=== PATIENT | female | born 1950 | race Caucasian/White ===

== ENCOUNTER 2016-08-18 | Outpatient (CLI) | payer MEDICARE, OTHER | END 2016-08-18 09:01 | disposition short-term general hospital (02) | CPT/HCPCS: A0425; A0427 ==

== ENCOUNTER 2016-09-06 | Outpatient (CLI) | payer MEDICARE, OTHER | END 2016-09-06 21:03 | disposition EMS.NT | DX: R03.1 Nonspecific low blood-pressure reading (principal) ==

== ENCOUNTER 2016-09-17 09:13 | Outpatient (CLI) | payer MEDICARE, OTHER | END 2016-09-17 09:14 | disposition home or self-care (01) | DX: E11.9 Type 2 diabetes mellitus without complications (principal); I10 Essential (primary) hypertension; E78.5 Hyperlipidemia, unspecified ==

== ENCOUNTER 2017-03-24 06:12 | Outpatient (CLI) | payer MEDICARE, OTHER | END 2017-03-24 06:13 | disposition critical access hospital (66) | LOC: EMS 06:12 | PROVIDERS: ATTEND Surgery | DX: M25.511 Pain in right shoulder (principal); Z91.81 History of falling | CPT/HCPCS: A0425; A0429 ==

== ENCOUNTER 2017-03-24 06:40 | Inpatient (IN) | payer MEDICARE, OTHER ==
[2017-03-24] MEDS ORDERED: SODIUM CHLORIDE 0.9% 1,000 ML IV ONE (07:20)
[2017-03-24] MEDS ORDERED: ONDANSETRON 4 MG/2 ML VIAL IVP STA (07:20)
[2017-03-24] MEDS ORDERED: HYDROmorphone 1 MG/ML SYRINGE IVP STA (07:20)
--- NOTE | 2017-03-24 07:30 | ED Physician Documentation ---
History of Present Illness - Stated complaint Stated Complaint: FALL - Chief complaint Chief Complaint: Ext Problem - History obtained from History obtained from: Patient - Additonal information Additional information: 66-year-old female with a history of valvular heart disease status post repair in July 2016 at [facility]. She says she had a stroke postoperatively. She also has a history of depression and borderline diabetes. She takes a baby aspirin citalopram metformin and trazodone at night. Yesterday she says she felt very shaky and went to bed early without dinner. She does not have good recollection about what happened this morning but the son says he woke up and heard a scream this morning and heard a fall. He went down and found her on the ground and she is unable to get up. She is complaining of right shoulder pain but denies any significant headache neck pain chest pain abdominal pain nausea vomiting constipation, diarrhea or lower urinary symptoms. She normally has a difficult time ambulating but was getting around fine over the last couple days her son says. She often uses a walker at home. Patient lives at home in the bottom floor and her son lives upstairs. Review of systems: For pertinent positive and negatives in the review of systems please see the history of present illness, otherwise all other systems have been reviewed and are negative. Dragon disclaimer: Parts of this medical record were created using voice recognition technology. Because of the inherent limitations of this system, occasional same sounding word substitutions do occur and persist despite proofreading. Please read the document for context. Review of Systems Ten Systems: 10 systems reviewed and negative Constitutional: denies: Fever, Chills, Myalgias Eyes: denies: Photophobia Ears: denies: Loss of hearing, Ear pain, Drainage/discharge Nose: denies: Rhinorrhea / runny nose Throat: denies: Dental pain / toothache Cardiac: denies: Chest pain / pressure, Palpitations Respiratory: denies: Dyspnea, Cough GI: reports: Nausea. denies: Abdominal Pain, Abdominal Swelling, Vomiting, Constipation, Diarrhea, Hematemesis : denies: Dysuria, Frequency, Hesitancy Musculoskeletal: reports: Neck pain, Extremity pain, Joint pain. denies: Back pain Neurologic: denies: Generalized weakness, Numbness, Difficulty speaking, Near syncope, Syncope, Seizure, Confused, Altered mental status PD PAST MEDICAL HISTORY - Past Medical History Past Medical History: Yes Cardiovascular: Murmur Neuro: CVA GI: None : Incontinence, Nocturia, Frequency HEENT: Chronic hearing loss Psych: Panic attacks, Other Derm: Other - Past Surgical History General: Cholecystectomy, Appendectomy, Gastric surgery Ortho: Other Cardiovascular: Valve replacement - Present Medications Home Medications: Ambulatory Orders Medication Instructions Recorded Confirmed Trazodone HCl 50 mg PO HS PRN 10/25/13 03/24/17 Albuterol Sulfate [Proair Hfa 1 - 2 puffs INH BID PRN 03/24/17 03/24/17 Inhaler] Aspirin Chewable [[place] Ag[place]in 81 mg PO DAILY 03/24/17 03/24/17 Aspirin] Atorvastatin Calcium [Atorvastatin 40 mg PO DAILY 03/24/17 03/24/17 Calcium] Citalopram Hydrobromide 15 mg PO DAILY 03/24/17 03/24/17 [Citalopram HBr] Iron,Carbonyl [Iron Chews] 03/24/17 metFORMIN [Glucophage] 500 mg PO BID 03/24/17 03/24/17 - Allergies Allergies/Adverse Reactions: Allergies Allergy/AdvReac Type Severity Reaction Status Date / Time oxycodone Allergy Unknown Verified 03/24/17 13:48 codeine AdvReac Nausea Verified 03/24/17 06:53 - Social History Does the pt smoke?: No Smoking Status: Former smoker Does the pt drink ETOH?: No Does the pt have substance abuse?: No - Immunizations Immunizations: TDAP current <10years PD ED PE NORMAL - Vitals Vital signs reviewed: Yes - General General: Alert and oriented X 3, No acute distress, Well developed/nourished, Other (Patient is alert and oriented 3 however she does not appear to have good recollection of recent events.) - HEENT HEENT: Other (Bruising to the left zygoma area and periorbital area left side just below the left eye. Mild tenderness of the neck on palpation of the paraspinal muscles no posterior tenderness noted) - Neck Neck: Supple, no meningeal sign - Cardiac Cardiac: No murmur, No gallop, No rub, Other (The heart tones are irregular. There is no lift or heave or obvious murmur) - Respiratory Respiratory: No respiratory distress, Clear bilaterally, Other (Patient is tender over the right clavicle and anterior chest) - Abdomen Abdomen: Normal bowel sounds, Soft, Non tender, Non distended - Back Back: No CVA TTP - Derm Derm: Normal color, Warm and dry - Extremities Extremities: No deformity, No tenderness to palpate, Normal ROM s pain, Other ( Trace edema bilateral lower extremities, some bruising to the left forearm and left elbow range of motion of the left elbow well-preserved without pain) - Neuro Neuro: Alert and oriented X 3, 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, No motor deficit, No sensory deficit Results - Vitals Vitals: Vital Signs - 24 hr 03/24/17 03/24/17 03/24/17 06:42 07:15 08:29 Temperature 36.7 C 36.7 C Heart Rate 84 82 89 Respiratory 16 20 15 Rate Blood Pressure 190/94 H 196/95 H 185/93 H O2 Saturation 98 98 97 03/24/17 03/24/17 03/24/17 09:04 10:30 11:04 Temperature 36.4 C L Heart Rate 86 80 85 Respiratory 14 20 16 Rate Blood Pressure 195/91 H 180/92 H 192/91 H O2 Saturation 97 97 98 03/24/17 03/24/17 03/24/17 12:05 12:30 13:00 Temperature 36.9 C Heart Rate 79 82 Respiratory 16 20 Rate Blood Pressure 209/110 H 190/103 H 182/98 H O2 Saturation 98 94 Oxygen O2 Source Room air - Labs Labs: Laboratory Tests 03/24/17 03/24/17 03/24/17 07:35 08:15 08:15 WBC 7.3 RBC 3.60 L Hgb 11.6 L Hct 34.4 L MCV 95.5 MCH 32.3 H MCHC 33.8 RDW 14.2 Plt Count 184 MPV 8.2 Neut # 5.0 Lymph # 1.7 [place] # 0.6 Eos # 0.0 Baso # 0.0 Absolute Nucleated RBC 0.00 Nucleated RBCs 0.0 Sodium 130 L Potassium 5.2 H Chloride 99 L Carbon Dioxide 22 Anion Gap 9.0 BUN 18 Creatinine 1.1 H Estimated GFR (MDRD) 50 L Glucose 116 H Calcium 8.8 Total Bilirubin 1.3 H AST 40 ALT 29 Alkaline Phosphatase 109 Troponin I 0.11 B-Natriuretic Peptide Total Protein 5.8 L Albumin 3.1 L Globulin 2.7 Albumin/Globulin Ratio 1.1 Lipase 21 L Urine Color Urine Clarity Urine pH Ur Specific [place] Urine Protein Urine Glucose (UA) Urine Ketones Urine Occult Blood Urine Nitrite Urine Bilirubin Urine Urobilinogen Ur Leukocyte Esterase Urine RBC Urine WBC Urine WBC Clumps Ur Squamous Epith Cells Urine Bacteria Ur Microscopic Review Urine Culture Comments 03/24/17 03/24/17 08:15 10:40 WBC RBC Hgb Hct MCV MCH MCHC RDW Plt Count MPV Neut # Lymph # [place] # Eos # Baso # Absolute Nucleated RBC Nucleated RBCs Sodium Potassium Chloride Carbon Dioxide Anion Gap BUN Creatinine Estimated GFR (MDRD) Glucose Calcium Total Bilirubin AST ALT Alkaline Phosphatase Troponin I B-Natriuretic Peptide 323 H Total Protein Albumin Globulin Albumin/Globulin Ratio Lipase Urine Color YELLOW Urine Clarity CLEAR Urine pH 6.0 Ur Specific [place] <=1.005 Urine Protein NEGATIVE Urine Glucose (UA) NEGATIVE Urine Ketones NEGATIVE Urine Occult Blood NEGATIVE Urine Nitrite NEGATIVE Urine Bilirubin NEGATIVE Urine Urobilinogen 0.2 (NORMAL) Ur Leukocyte Esterase SMALL H Urine RBC 0-5 Urine WBC >25 H Urine WBC Clumps PRESENT Ur Squamous Epith Cells FEW Squamous Urine Bacteria Many H Ur Microscopic Review INDICATED Urine Culture Comments INDICATED PD MEDICAL DECISION MAKING - ED course Complexity details: reviewed old records, reviewed results, re-evaluated patient , d/w patient, d/w family, d/w polymer materials consultant ED course: Patient is a 66-year-old female with a history of diabetes, aortic valve replacement, previous stroke in 2017 and chronic gait issues who presents with a complaint of a collapse episode this morning. She felt a little shaky yesterday went to bed early, and slept all night. She woke up this morning and apparently collapsed. The patient does not have good recollection of what happened. The son heard her scream and how heard her fall. He was unable to get her up off the floor and called the ambulance. They really reported finding this patient diaphoretic. Here she was alert and oriented and appeared to be nonfocal on neurologic examination. She had a contusion to the left infraorbital area and bruising to her left elbow and also any obvious fracture to the right clavicle. A CT scan of the head, neck, and chest were unremarkable with evidence of new focal traumatic injury but did show a comminuted clavicle fracture. The patient was placed in an arm sling. She was given IV fluids and analgesia and feels better. Her EKG showed an ectopic rhythm that was mildly tachycardic. There is a few sinus beats inter-dispersed within the ectopic rhythm. This is a new finding for her. Lab work on this patient shows a potassium of 5.2 which is probably fictitiously elevated due to hemolysis. Her renal function is relatively normal. She did prove to have a urinary tract infection and subsequently was given Rocephin intravenously. We attempted to get the patient up to walk and she was very ataxic. We do not know exactly what happened this morning. It is very likely that she had a syncopal episode given the abnormal EKG cardiac syncope is a potential factor as well as possible stroke or posterior circulation ischemia. The case was discussed with the hospitalist physician on duty and the patient will be admitted to the hospital Disposition: Admission Clinical impression: 1. Probable syncope 2. Acute right sided clavicle fracture 3. Persistent ataxia and gait instability 4. Ectopic atrial rhythm on EKG which is new for this patient 5. Urinary tract infection Departure - Departure Disposition: [facility]/Danelle Discharge Date/Time: 03/24/17 13:21
[2017-03-24 07:45] LABS: BASOPHILS % (AUTO) 0.5 %; EOSINOPHILS % (AUTO) 0.5 %; HCT - HEMATOCRIT 34.4 % (37.0-47.0); HGB - HEMOGLOBIN 11.6 g/dL (12.0-16.0); LYMPHOCYTES # (AUTO) 1.7 10^3/uL (1.5-3.5); LYMPHOCYTES % (AUTO) 22.9 %; MEAN CORPUSCULAR HEMOGLOBIN 32.3 pg (27.0-31.0); MEAN CORPUSCULAR HGB CONC 33.8 g/dL (32.0-36.0); MEAN CORPUSCULAR VOLUME 95.5 fL (81.0-99.0); MEAN PLATELET VOLUME 8.2 fL (7.9-10.8); MONOCYTES # (AUTO) 0.6 10^3/uL (0.0-1.0); MONOCYTES % (AUTO) 8.1 %; RED CELL DISTRIBUTION WIDTH 14.2 % (12.0-15.0); UNCORRECTED WHITE BLOOD COUNT 7.3 x10^3/uL; WHITE BLOOD COUNT 7.3 x10^3/uL (4.8-10.8)
--- NOTE | 2017-03-24 08:16 | CT Preliminary Report ---
Exam: CT Head W/O IMPRESSION: Stable head CT. Aveb-fr-ymrbakrt atrophy and chronic white matter microvascular ischemic change. No acute intracranial process or posttraumatic abnormality. [facility] SITE ID: [id number]
--- NOTE | 2017-03-24 08:18 | CT Report ---
EXAM: CT HEAD WITHOUT CONTRAST EXAM DATE: 03/24/2017 07:48 AM. CLINICAL HISTORY: 66-year-old female with ataxia post fall with left cheek bruising. COMPARISON: 12/28/2015. TECHNIQUE: Multiaxial CT images were obtained from the foramen magnum to the vertex on an emergent ba sis. IV contrast: None. Reformats: Coronal. In accordance with CT protocol optimization, one or more of the following dose reduction techniques w ere utilized for this exam: automated exposure control, adjustment of mA and/or KV based on patient s ize, or use of iterative reconstructive technique. FINDINGS: Parenchyma: Generalized mild age-appropriate cerebral and cerebellar atrophy. No intraparenchymal hem orrhage. No evidence of mass, midline shift, or CT findings of acute infarction. Doe-white different iation is distinct. Extraaxial Spaces: Normal for age. No subdural or epidural collections identified. Ventricles: The ventricles and cortical sulci are enlarged, consistent with age-related tissue loss. Sinuses: Imaged paranasal sinuses, orbits, and mastoids show no significant abnormality. Bones: No evidence of fracture or calvarial defect. Other: Diffuse mild to moderate chronic microangiopathic white matter changes are evident. IMPRESSION: Stable head CT. [id number] atrophy and chronic white matter microvascular ischemic change. No acute intracranial process or posttraumatic abnormality. [facility] Referring Provider Line: [phone] SITE ID: [id number]
[2017-03-24] MEDS ORDERED: ONDANSETRON 4 MG/2 ML VIAL ONE (08:23)
[2017-03-24] MEDS ORDERED: HYDROmorphone 1 MG/ML SYRINGE ONE (08:24)
[2017-03-24] MEDS ORDERED: SODIUM CHLORIDE FLUSH 0.9% 10 ML SYRINGE IVP ONE (08:25)
--- NOTE | 2017-03-24 08:26 | CT Preliminary Report ---
Exam: CT Cervical Spine W/O IMPRESSION: No acute process or recent posttraumatic abnormality. Old unfused posterior spinous process fractures of T1 and T2. Severe degenerative disk disease at C5-C6 and C6-C7, somewhat worse over the past year. 3 mm degenerative retrolisthesis of C5 on C6, chronic and stable. [facility] SITE ID: [id number]
--- NOTE | 2017-03-24 08:28 | CT Report ---
EXAM: CT CERVICAL SPINE WITHOUT CONTRAST DATE: 03/24/2017 08:02 AM HISTORY: 66-year-old female with ataxia, post fall with neck pain. COMPARISONS: 12/28/2015. TECHNIQUE: Thin-section axial images were acquired of the cervical spine without contrast on an emerg ent basis. Post-processing: Coronal and sagittal reformats. Other: None. In accordance with CT protocol optimization, one or more of the following dose reduction techniques w ere utilized for this exam: automated exposure control, adjustment of mA and/or KV based on patient s ize, or use of iterative reconstructive technique. FINDINGS: Alignment: 3 mm grade 1 degenerative retrolisthesis of C5 on C6, similar to prior exam. Alignment oth erwise normal. Bones: Old unfused fractures of the posterior spinous processes of T1 and T2, in retrospect the T2 fr acture was likely present on the prior study of December 2015. No acute fractures. Interspace Levels/Facets: C1-C2: Unremarkable. C2-C3: Unremarkable. C3-C4: Unremarkable. C4-C5: Unremarkable. C5-C6: Severe degenerative disk disease with mild spondylosis, mildly progressive over the past year. C6-C7: Severe degenerative disk disease, mildly progressive over the past year with mild spondylosis. C7-T1: Unremarkable. Musculature: Normal. No fatty atrophy. Other: The paravertebral and prevertebral soft tissues are normal. The lung apices are clear. IMPRESSION: No acute process or recent posttraumatic abnormality. Old unfused posterior spinous process fractures of T1 and T2. Severe degenerative disk disease at C5-C6 and C6-C7, somewhat worse over the past year. 3 mm degenerative retrolisthesis of C5 on C6, chronic and stable. [facility] Referring Provider Line: [phone] SITE ID: [id number]
--- NOTE | 2017-03-24 08:35 | CT Report ---
EXAM: CT CHEST WITHOUT CONTRAST EXAM DATE: 03/24/2017 08:03 AM. CLINICAL HISTORY: 66-year-old female with ataxia post fall with right clavicle right chest wall tende rness. COMPARISONS: Two-view chest radiograph 10/01/2015. TECHNIQUE: Emergent axial helical CT imaging was performed through the chest. IV contrast: None. Nilson nstructions: Coronal and sagittal. In accordance with CT protocol optimization, one or more of the following dose reduction techniques w ere utilized for this exam: automated exposure control, adjustment of mA and/or KV based on patient s ize, or use of iterative reconstructive technique. FINDINGS: Lungs/Pleura: Minimal areas of atelectasis or scarring both lung bases. Moderate hyperinflation. No n odules, bronchial thickening, consolidation, or edema. Pulmonary vasculature is normal. No pericardia l or pleural effusion. No pneumothorax. Mediastinum: Interval cardiac surgery since prior study aortic valve replacement. Great vessels gross ly unremarkable. No pericardial effusion. No adenopathy. Bones: Mildly comminuted fracture at the junction of middle and distal thirds of the right clavicle, mildly displaced. No additional acute osseous abnormalities. Accentuated thoracic kyphosis, as on previous study. Visualized Abdomen: No posttraumatic abnormality. Few calcified granulomas in the spleen. Other: None. IMPRESSION: Findings consistent with mildly comminuted fracture, slightly displaced, at the junction of the middle and distal thirds of the right clavicle. Standard 2 view radiographic study of the righ t clavicle recommended for further assessment. No pneumothorax or other posttraumatic abnormality of the chest. Interval aortic valve replacement since prior chest radiograph. [facility] Referring Provider Line: [phone] SITE ID: [id number]
[2017-03-24 08:37] LABS: ALBUMIN/GLOBULIN RATIO 1.1 (1.0-2.2); BILIRUBIN,TOTAL 1.3 mg/dL (0.2-1.0); CALCIUM 8.8 mg/dL (8.5-10.3); CREATININE 1.1 mg/dL (0.4-1.0); POTASSIUM 5.2 mmol/L (3.5-5.0); TOTAL PROTEIN 5.8 g/dL (6.7-8.2)
[2017-03-24 10:53] LABS: BILIRUBIN,URINE NEGATIVE (NEGATIVE)
[2017-03-24 10:56] LABS: UA w/ MICROSCOPIC CHARGE YES
[2017-03-24 11:18] LABS: UR CULTURE IF IND INDICATED; WBC,URINE >25 /HPF (0-5)
[2017-03-24] MEDS ORDERED: cefTRIAXone 1 GM in SODIUM CHLORIDE 0.9% MINIBAG 100 ML IV STA (11:23)
[2017-03-24] MEDS ORDERED: cefTRIAXone 1 GM VIAL ONE (11:33)
[2017-03-24] MEDS ORDERED: SODIUM CHLORIDE FLUSH 0.9% 10 ML SYRINGE IVP PRN (13:04)
[2017-03-24] MEDS ORDERED: ACETAMINOPHEN 325 MG TABLET PO PRN (13:04)
[2017-03-24] MEDS ORDERED: ACETAMINOPHEN/CODEINE 300 MG/30 MG TABLET PO PRN (13:59)
[2017-03-24] MEDS ORDERED: traZODone 50 MG TABLET PO PRN (14:00)
[2017-03-24] MEDS: cloNIDine 0.1 MG TABLET PO PRN (14:24)
[2017-03-24] MEDS: SODIUM CHLORIDE FLUSH 0.9% 10 ML SYRINGE IVP SCH ×2 (14:25→21:36)
[2017-03-24] MEDS: SODIUM CHLORIDE 0.9% 1,000 ML IV SCH (14:25)
[2017-03-24 14:33] LABS: HEMOGLOBIN A1C 0.34 g/dL
[2017-03-24] MEDS ORDERED: ALBUTEROL NEB 2.5 MG/3 ML INH PRN (14:51)
[2017-03-24] MEDS: oxyCODONE 5 MG TABLET PO PRN ×2 (15:58→21:40)
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
[2017-03-24] MEDS: INSULIN ASPART 300 UNIT/3 ML PEN SUBQ SCH ×2 (16:47→21:33)
[2017-03-25] MEDS: cloNIDine 0.1 MG TABLET PO PRN ×2 (00:15→14:56)
--- NOTE | 2017-03-25 01:51 | Ultrasound Preliminary Report ---
Exam: US Carotid Doppler Complete IMPRESSION: Mild bilateral internal carotid artery calcified plaque with no hemodynamically significa nt stenosis. Validated velocity measurements with angiographic measurements and velocity criteria are extrapolated from diameter data as defined by the Society of Radiologists in Ultrasound Consensus Conference Radi ology 2003; 229;340-346. [facility] SITE ID: [id number]
[2017-03-25] MEDS: oxyCODONE 5 MG TABLET PO PRN ×4 (02:32→19:22)
[2017-03-25] MEDS: SODIUM CHLORIDE FLUSH 0.9% 10 ML SYRINGE IVP SCH ×3 (04:58→19:22)
[2017-03-25 06:05] LABS: BASOPHILS % (AUTO) 0.8 %; EOSINOPHILS # (AUTO) 0.1 10^3/uL (0.0-0.7); EOSINOPHILS % (AUTO) 1.2 %; HCT - HEMATOCRIT 30.2 % (37.0-47.0); LYMPHOCYTES # (AUTO) 1.2 10^3/uL (1.5-3.5); MEAN CORPUSCULAR HEMOGLOBIN 32.1 pg (27.0-31.0); MEAN CORPUSCULAR VOLUME 97.2 fL (81.0-99.0); MEAN PLATELET VOLUME 7.6 fL (7.9-10.8); MONOCYTES # (AUTO) 0.6 10^3/uL (0.0-1.0); MONOCYTES % (AUTO) 13.3 %; NEUTROPHILS # (AUTO) 2.6 10^3/uL (1.5-6.6); NEUTROPHILS % (AUTO) 57.7 %; RED BLOOD COUNT 3.11 10^6/uL (4.20-5.40); UNCORRECTED WHITE BLOOD COUNT 4.5 x10^3/uL; WHITE BLOOD COUNT 4.5 x10^3/uL (4.8-10.8)
[2017-03-25 06:19] LABS: ALBUMIN/GLOBULIN RATIO 1.3 (1.0-2.2); BILIRUBIN,TOTAL 0.4 mg/dL (0.2-1.0); CALCIUM 8.1 mg/dL (8.5-10.3); CREATININE 1.1 mg/dL (0.4-1.0); POTASSIUM 4.3 mmol/L (3.5-5.0); TOTAL PROTEIN 4.5 g/dL (6.7-8.2)
[2017-03-25] MEDS: INSULIN ASPART 300 UNIT/3 ML PEN SUBQ SCH ×4 (07:52→21:16)
[2017-03-25] MEDS ORDERED: SODIUM CHLORIDE 0.9% 1,000 ML IV ONE (08:42)
[2017-03-25] MEDS: SODIUM CHLORIDE 0.9% 1,000 ML IV SCH (08:48)
[2017-03-25] MEDS: NICOTINE 7 MG PATCH TOP SCH (08:48)
[2017-03-25] MEDS: ENOXAPARIN 40 MG/0.4 ML SYRINGE SUBQ SCH (08:48)
[2017-03-25] MEDS: ASPIRIN CHEW 81 MG TABLET PO SCH (08:49)
[2017-03-25] MEDS: ATORVASTATIN 40 MG TABLET PO SCH (08:49)
[2017-03-25] MEDS: CITALOPRAM 10 MG TABLET PO SCH (08:49)
[2017-03-25] MEDS: cefTRIAXone 1 GM in SODIUM CHLORIDE 0.9% MINIBAG 100 ML IV SCH (08:49)
[2017-03-25] MEDS: POLYETHYLENE GLYCOL 3350 17 GM PACKET PO SCH (08:50)
[2017-03-25] MEDS ORDERED: cefTRIAXone 1 GM VIAL IVP SCH (09:00)
[2017-03-25] MEDS ORDERED: GADOBUTROL 7.5 MMOL/7.5 ML VIAL IVP ONE (11:36)
--- NOTE | 2017-03-25 12:11 | PROVIDER PROGRESS NOTE ---
Assessment/Plan - Problem List (1) Syncope Assessment/Plan: Patient presented with syncope at home after days of dizziness, shakes and an unsteady gait She fell out of her bed and was unable to get up Cause of syncope is unclear patient did have short runs of V tach on tele but was asymptomatic echo is pending MRI ordered as patient also has ataxia concerning for possible posterior stroke Patient also has UTI which could have caused dehydration and syncope Patient fractured right clavicle due to syncopal event Plan: Tele monitoring Echo MRI Carotid doppler Treat UTI (2) Ataxia Assessment/Plan: Patient has ataxia which is new and had a syncopal event at home This is concerning for possible posterior circulation stroke CT head negative for acute stroke Could also be secondary to hypertensive emergency as patients BP was very high on presentation Plan: MRI PT evaluation Carotid doppler Echo Control BP Monitoring (3) UTI (urinary tract infection) Qualifiers: Urinary tract infection type: acute cystitis Assessment/Plan: UA was positive with pyuria and bacteruria in setting of syncope, generalized weakness and ataxia Patient also had chills at home but no fever or leukocytosis Started on ceftriaxone day 2 Urine cx growing gram negative bacteria but sensitivities to follow (4) Hypertension Assessment/Plan: Uncontrolled BP on presentation concerning for acute stroke Allowing for permissive hypertension till MRI is back Started on home meds Keep BP less than 180 systolic Monitor closely (5) Diabetes Assessment/Plan: On metformin at home Started on SS insulin while hospitalized MOnitor BG (6) Right clavicle fracture Qualifiers: Encounter type: initial encounter Clavicle location: lateral end Fracture type: closed Fracture alignment: displaced Qualified Code(s): S42.031A - Displaced fracture of lateral end of right clavicle, initial encounter for closed fracture Assessment/Plan: Placed in sling will change to figure 8 sling per PT recommendations Patient will continue conservative management Will need to follow up with ortho as outpatient Will continue pain control - Current Meds Current Meds: Current Medications Generic Name Dose Route Start Last Admin Trade Name Freq PRN Reason Stop Dose Admin Aspirin 81 mg 03/25/17 09:00 03/25/17 08:49 [facility] Agustin Aspirin PO 81 mg DAILY TIARA Administration Atorvastatin Calcium 40 mg 03/25/17 09:00 03/25/17 08:49 Lipitor PO 40 mg DAILY TIARA Administration Citalopram Hydrobromide 15 mg 03/25/17 09:00 03/25/17 08:49 Celexa PO 15 mg DAILY TIARA Administration Clonidine HCl 0.1 mg 03/24/17 13:34 03/25/17 00:15 Catapres PO 0.1 mg Q6HR PRN Administration Hypertensive Emergency Enoxaparin Sodium 40 mg 03/25/17 09:00 03/25/17 08:48 Lovenox SUBQ 40 mg DAILY TIARA Administration Sodium Chloride 1,000 mls @ 50 mls/hr 03/24/17 14:00 03/25/17 08:48 Normal Saline 0.9% IV 50 mls/hr .Q20H TIARA Administration Ceftriaxone Sodium 1 gm/ 100 mls @ 200 mls/hr 03/25/17 09:00 03/25/17 08:49 Sodium Chloride IV 200 mls/hr DAILY TIARA Administration Insulin Aspart 1 - 9 unit 03/24/17 17:00 03/25/17 07:52 Novolog SUBQ Not Given 0800,1200,1700,2100 TIARA Protocol Nicotine 1 patch 03/25/17 09:00 03/25/17 08:48 Nicoderm TOP 1 patch DAILY TIARA Administration Oxycodone HCl 5 mg 03/24/17 14:50 03/25/17 06:45 Roxicodone PO 5 mg Q4HR PRN Administration PAIN Polyethylene Glycol 17 gm 03/25/17 09:00 03/25/17 08:50 Miralax PO Not Given DAILY TIARA Sodium Chloride 10 ml 03/24/17 14:00 03/25/17 04:58 Normal Saline Flush 0.9% IVP Not Given Q8HR TIARA - Lab Result Lab results reviewed: Yes Fish Bone Diagrams: 03/25/17 06:00 03/25/17 06:00 - EKG Results EKG Interpreted Independently: Yes - Diagnostic Imaging Results Diagnostic Imaging Results: Final report reviewed - Additional Planning Condition/Complexity: Guarded My Orders: My Active Orders 03/25/17 11:43 ED Splints & Immobilizers ONCE Plan Discussed with:: Patient Time Spent: 31-60 minutes Subjective - Subjective Patient Reports: Dizzines (Improving), Pain (Right clavicle- hurts whenever she moves it), Other (She states she has not been up today so she cannot tell if she is still having trouble with her gait) Nursing Reports: No Complaints Objective Vital Signs: Vital Signs - 24 hr 03/24/17 03/24/1717 13:30 13:47 15:54 Temperature 36.4 C L 36.8 C Heart Rate [ 90 69 Brachial] Heart Rate [ 90 Supine] Respiratory 16 16 Rate Blood Pressure 205/115 H 178/88 H [Left Brachial artery] Blood Pressure 205/115 H [Supine] O2 Saturation 100 97 O2 Saturation [ 100 Without Activity] 03/24/17 03/24/17 03/25/17 17:03 19:38 00:12 Temperature 37.3 C 36.7 C Heart Rate [ 71 76 Brachial] Heart Rate [ Supine] Respiratory 14 16 Rate Blood Pressure 153/83 H 155/74 H 165/82 H [Left Brachial artery] Blood Pressure [Supine] O2 Saturation 100 96 O2 Saturation [ Without Activity] 03/25/17 03/25/17 04:18 07:22 Temperature 36.8 C 36.9 C Heart Rate [ 74 68 Brachial] Heart Rate [ Supine] Respiratory 16 16 Rate Blood Pressure 150/75 H 133/79 H [Left Brachial artery] Blood Pressure [Supine] O2 Saturation 96 95 O2 Saturation [ Without Activity] Oxygen O2 Source [Without Activity] Room air O2 Source Room air I&O (Last 24 Hrs): Intake and Output Totals x24h 03/23/17 03/24/17 03/25/17 23:59 23:59 23:59 Intake Total 579 693 Balance 579 693 General: Alert, Oriented x3, Cooperative, Mild distress (pain in right clavicle) HEENT: Atraumatic, PERRLA, EOMI, Other (dry mucus membranes) Neck: Supple, No JVD, No thyromegaly, +2 carotid pulse wo bruit, No LAD Lymphatic: no adenopathy Neuro: Alert, Non Focal, CN 2-12 Grossly Intact, Oriented Times 3, Other (Ataxia ) Cardiovascular: Regular rate, Normal S1, Normal S2, No murmurs Respiratory: Chest non-tender, No respiratory distress, Breath sounds nml Abdomen: Normal bowel sounds, Soft, No tenderness, No hepatospenomegaly Extremities: No clubbing, No cyanosis, No edema, Normal pulses, Other (Right arm in sling) Skin: No rashes, No breakdown - Results Results: Laboratory Results WBC 4.5 x10^3/uL (4.8-10.8) L 03/25/17 06:00 RBC 3.11 10^6/uL (4.20-5.40) L 03/25/17 06:00 Hgb 10.0 g/dL (12.0-16.0) L 03/25/17 06:00 Hct 30.2 % (37.0-47.0) L 03/25/17 06:00 MCV 97.2 fL (81.0-99.0) 03/25/17 06:00 MCH 32.1 pg (27.0-31.0) H 03/25/17 06:00 MCHC 33.0 g/dL (32.0-36.0) 03/25/17 06:00 RDW 14.0 % (12.0-15.0) 03/25/17 06:00 Plt Count 132 10^3/uL (130-450) 03/25/17 06:00 MPV 7.6 fL (7.9-10.8) L 03/25/17 06:00 Neut # 2.6 10^3/uL (1.5-6.6) 03/25/17 06:00 Lymph # 1.2 10^3/uL (1.5-3.5) L 03/25/17 06:00 Moody # 0.6 10^3/uL (0.0-1.0) 03/25/17 06:00 Eos # 0.1 10^3/uL (0.0-0.7) 03/25/17 06:00 Baso # 0.0 10^3/uL (0.0-0.1) 03/25/17 06:00 Absolute Nucleated RBC 0.00 x10^3/uL 03/25/17 06:00 Nucleated RBCs 0.0 /100WBC 03/25/17 06:00 Sodium 134 mmol/L (135-145) L 03/25/17 06:00 Potassium 4.3 mmol/L (3.5-5.0) 03/25/17 06:00 Chloride 106 mmol/L (101-111) 03/25/17 06:00 Carbon Dioxide 24 mmol/L (21-32) 03/25/17 06:00 Anion Gap 4.0 (6-13) L 03/25/17 06:00 BUN 12 mg/dL (6-20) 03/25/17 06:00 Creatinine 1.1 mg/dL (0.4-1.0) H 03/25/17 06:00 Estimated GFR (MDRD) 50 (>89) L 03/25/17 06:00 Glucose 108 mg/dL (70-100) H 03/25/17 06:00 POC Whole Bld Glucose 110 mg/dL (70 - 100) H 03/25/17 07:17 Glycated Hemoglobin 4.7 % (4.6-6.2) 03/24/17 07:35 Estim Average Glucose 88 (70-100) 03/24/17 07:35 Calcium 8.1 mg/dL (8.5-10.3) L 03/25/17 06:00 Total Bilirubin 0.4 mg/dL (0.2-1.0) 03/25/17 06:00 AST 28 IU/L (10-42) 03/25/17 06:00 ALT 21 IU/L (10-60) 03/25/17 06:00 Alkaline Phosphatase 86 IU/L (42-121) 03/25/17 06:00 Troponin I 0.11 ng/mL (<0.49) 03/24/17 08:15 B-Natriuretic Peptide 323 pg/mL (5-100) H 03/24/17 08:15 Total Protein 4.5 g/dL (6.7-8.2) L 03/25/17 06:00 Albumin 2.5 g/dL (3.2-5.5) L 03/25/17 06:00 Globulin 2.0 g/dL (2.1-4.2) L 03/25/17 06:00 Albumin/Globulin Ratio 1.3 (1.0-2.2) 03/25/17 06:00 Lipase 21 U/L (22-51) L 03/24/17 08:15 Urine Color YELLOW 03/24/17 10:40 Urine Clarity CLEAR (CLEAR) 03/24/17 10:40 Urine pH 6.0 PH (5.0-7.5) 03/24/17 10:40 Ur Specific [place] <=1.005 (1.002-1.030) 03/24/17 10:40 Urine Protein NEGATIVE mg/dL (NEGATIVE) 03/24/17 10:40 Urine Glucose (UA) NEGATIVE mg/dL (NEGATIVE) 03/24/17 10:40 Urine Ketones NEGATIVE mg/dL (NEGATIVE) 03/24/17 10:40 Urine Occult Blood NEGATIVE (NEGATIVE) 03/24/17 10:40 Urine Nitrite NEGATIVE (NEGATIVE) 03/24/17 10:40 Urine Bilirubin NEGATIVE (NEGATIVE) 03/24/17 10:40 Urine Urobilinogen 0.2 (NORMAL) E.U./dL (NORMAL) 03/24/17 10:40 Ur Leukocyte Esterase SMALL (NEGATIVE) H 03/24/17 10:40 Urine RBC 0-5 /HPF (0-5) 03/24/17 10:40 Urine WBC >25 /HPF (0-5) H 03/24/17 10:40 Urine WBC Clumps PRESENT 03/24/17 10:40 Ur Squamous Epith Cells FEW Squamous (<= Few) 03/24/17 10:40 Urine Bacteria Many /HPF (None Seen) H 03/24/17 10:40 Ur Microscopic Review INDICATED 03/24/17 10:40 Urine Culture Comments INDICATED 03/24/17 10:40
--- NOTE | 2017-03-25 13:36 | MRI Preliminary Report ---
Exam: MRI Brain W/WO IMPRESSION: 1. No acute intracranial abnormalities. Specifically, no evidence of acute infarct, hemorrhage, or ma ss lesion. 2. Encephalomalacia in the occipital poles bilaterally, left side greater than right, most consistent with remote infarcts in the LIME SLUDGE MIXER territories. Involvement of the LIME SLUDGE MIXER territories bilaterally raises t he possibility of vertebrobasilar insufficiency. Consider CTA of the head and neck for vascular evalu ation. 3. Moderate to severe white matter changes in the deep cerebral white matter and extending to the sub cortical white matter bilaterally. Appearance is nonspecific, but most commonly due to sequelae of ch ronic small vessel ischemic disease. [facility] SITE ID: [id number]
--- NOTE | 2017-03-25 13:39 | MRI Report ---
EXAM: MRI BRAIN WITHOUT AND WITH CONTRAST EXAM DATE: 03/25/2017 11:54 AM. CLINICAL HISTORY: 66-year-old woman with intermittent dizziness. COMPARISON: Noncontrast head CT on 03/24/2017. TECHNIQUE: Multiplanar, multisequence T1-weighted and fluid-sensitive MR sequences of the brain were performed. Sequences optimized for routine evaluation. Other: None. Without and with IV Contrast: 4.5 cc Gadavist. FINDINGS: Parenchyma: No evidence of acute infarct on diffusion weighted sequence. The parenchyma demonstrates encephalomalacia in the occipital poles bilaterally, left side greater than right, as seen on the talya or CT and consistent with infarcts in the HOURLY SIGN LANGUAGE INTERPRETER territories. The remainder of the parenchyma demonstrat es moderate to severe burden of nonspecific FLAIR hyperintensity in the deep cerebral and periventric ular white matter. This extends to the subcortical white matter bilaterally, greatest in the posterio r frontal lobes. No abnormal enhancement. Pituitary: Unremarkable. Ventricles and Extra-axial Spaces: Ventricles are symmetric but mildly enlarged, most consistent with central cerebral volume loss at the upper limits of normal for age. Extra-axial spaces are unremarka ble. No abnormal enhancement. Internal Auditory Canals: Patent without mass lesion or abnormal enhancement bilaterally. Cochleas an d vestibular apparatuses demonstrate normal fluid signal intensity without abnormal enhancement. Orbits: Unremarkable. Sinuses: Paranasal sinuses and mastoid air cells are clear. Major Vascular Flow Voids: Intact. Dural Venous Sinuses and Major Central Veins: Patent on post-contrast images. IMPRESSION: 1. No acute intracranial abnormalities. Specifically, no evidence of acute infarct, hemorrhage, or ma ss lesion. 2. Encephalomalacia in the occipital poles bilaterally, left side greater than right, most consistent with remote infarcts in the HOURLY SIGN LANGUAGE INTERPRETER territories. Involvement of the HOURLY SIGN LANGUAGE INTERPRETER territories bilaterally raises t he possibility of vertebrobasilar insufficiency. Consider CTA of the head and neck for vascular evalu ation. 3. Moderate to severe white matter changes in the deep cerebral white matter and extending to the sub cortical white matter bilaterally. Appearance is nonspecific, but most commonly due to sequelae of ch ronic small vessel ischemic disease. [facility] Referring Provider Line: [phone] SITE ID: [id number]
--- NOTE | 2017-03-25 17:07 | Ultrasound Report ---
EXAM: CAROTID DOPPLER ULTRASOUND EXAM DATE: 03/25/2017 01:37 AM. CLINICAL HISTORY: Vertigo and syncope. COMPARISON: None. TECHNIQUE: Real-time sonographic vascular imaging was performed by the manager managed backup services through the [employer] arterial system with a linear transducer utilizing color-flow, Doppler flow and spectral analysis. Multiple branch service representative static images were saved for review. FINDINGS: Doe scale evaluation of the carotid arteries demonstrates mild calcified proximal to mid i nternal carotid artery plaque bilaterally noting vessel tortuosity. Peak systolic velocities and ICA/ CCA ratios, however, remain within normal limits. VELOCITIES: Right: CCA Prox: PSV 63.8 cm/sec. CCA Dist: PSV 56.3 cm/sec, EDV 17.9 cm/sec. ICA Prox: PSV 37.9 cm/sec, EDV 9.3 cm/sec. ICA Mid: PSV 35.9 cm/sec, EDV 11.8 cm/sec. ICA Dist: PSV 38.1 cm/sec, EDV 12.9 cm/sec. ECA: PSV 56.0 cm/sec. Vertebral Artery: PSV 59.8 cm/sec. RVA flow direction: Antegrade. Left: CCA Prox: PSV 110.9 cm/sec. CCA Dist: PSV 49.9 cm/sec, EDV 14.0 cm/sec. ICA Prox: PSV 80.3 cm/sec, EDV 25.2 cm/sec. ICA Mid: PSV 82.6 cm/sec, EDV 30.8 cm/sec. ICA Dist: PSV 52.3 cm/sec, EDV 18.9 cm/sec. ECA: PSV 51.9 cm/sec. Vertebral Artery: PSV 43.4 cm/sec. LVA flow direction: Antegrade. Other: None. IMPRESSION: Mild bilateral internal carotid artery calcified plaque with no hemodynamically significa nt stenosis. Validated velocity measurements with angiographic measurements and velocity criteria are extrapolated from diameter data as defined by the Society of Radiologists in Ultrasound Consensus Conference Radi ology 2003; 229;340-346. [facility] Referring Provider Line: [phone] SITE ID: [id number]
[2017-03-26] MEDS: oxyCODONE 5 MG TABLET PO PRN ×3 (00:45→09:50)
[2017-03-26] MEDS: cloNIDine 0.1 MG TABLET PO PRN (04:44)
[2017-03-26] MEDS: SODIUM CHLORIDE FLUSH 0.9% 10 ML SYRINGE IVP SCH (05:10)
[2017-03-26] MEDS: SODIUM CHLORIDE 0.9% 1,000 ML IV SCH (05:52)
[2017-03-26 06:01] LABS: BASOPHILS % (AUTO) 0.9 %; EOSINOPHILS # (AUTO) 0.1 10^3/uL (0.0-0.7); EOSINOPHILS % (AUTO) 1.6 %; HCT - HEMATOCRIT 29.7 % (37.0-47.0); HGB - HEMOGLOBIN 9.7 g/dL (12.0-16.0); LYMPHOCYTES # (AUTO) 1.4 10^3/uL (1.5-3.5); LYMPHOCYTES % (AUTO) 36.7 %; MEAN CORPUSCULAR HEMOGLOBIN 32.2 pg (27.0-31.0); MEAN CORPUSCULAR HGB CONC 32.7 g/dL (32.0-36.0); MEAN CORPUSCULAR VOLUME 98.4 fL (81.0-99.0); MEAN PLATELET VOLUME 8.1 fL (7.9-10.8); MONOCYTES # (AUTO) 0.5 10^3/uL (0.0-1.0); MONOCYTES % (AUTO) 12.5 %; NEUTROPHILS # (AUTO) 1.8 10^3/uL (1.5-6.6); NEUTROPHILS % (AUTO) 48.3 %; NUCLEATED RED BLOOD CELLS AUTO 0.1 /100WBC; RED BLOOD COUNT 3.02 10^6/uL (4.20-5.40); RED CELL DISTRIBUTION WIDTH 14.2 % (12.0-15.0); UNCORRECTED WHITE BLOOD COUNT 3.8 x10^3/uL; WHITE BLOOD COUNT 3.8 x10^3/uL (4.8-10.8)
[2017-03-26 06:02] LABS: BILIRUBIN,TOTAL 0.5 mg/dL (0.2-1.0); CREATININE 1.1 mg/dL (0.4-1.0); POTASSIUM 4.1 mmol/L (3.5-5.0); TOTAL PROTEIN 4.5 g/dL (6.7-8.2)
[2017-03-26] MEDS: CITALOPRAM 10 MG TABLET PO SCH (08:26)
[2017-03-26] MEDS: ATORVASTATIN 40 MG TABLET PO SCH (08:26)
[2017-03-26] MEDS: NICOTINE 7 MG PATCH TOP SCH (08:26)
[2017-03-26] MEDS: ASPIRIN CHEW 81 MG TABLET PO SCH (08:26)
[2017-03-26] MEDS: ENOXAPARIN 40 MG/0.4 ML SYRINGE SUBQ SCH (08:26)
[2017-03-26] MEDS: POLYETHYLENE GLYCOL 3350 17 GM PACKET PO SCH (08:26)
[2017-03-26] MEDS: INSULIN ASPART 300 UNIT/3 ML PEN SUBQ SCH ×2 (08:27→11:53)
[2017-03-26 09:06] VITALS: BP 109/64
[2017-03-26] MEDS: cefTRIAXone 1 GM in SODIUM CHLORIDE 0.9% MINIBAG 100 ML IV SCH (09:21)
--- NOTE | 2017-03-26 10:24 | Discharge Plan ---
Discharge Plan Disposition: Home Health Service Condition: Fair Prescriptions: Sulfamethox/Trimeth 800/160 [Bactrim Ds 800/160] 1 each PO BID #10 tablet Diet: Diabetic Activity Restrictions: Keep arm in splint Shower Restrictions: No Driving Restrictions: No Assistance Devices: Walker Weight Bearing: Full Weight Additional Instructions or Follow Up instructions: You presented with a syncopal episode and broke your right clavicle. We believe the reason for your syncopal episode was that you were dehydrated from a urinary tract infection. You underwent extensive testing which did not show any evidence of a stoke or any problems with your heart. You will be prescribed an antibiotic called bactrim which you will take for 5 days to complete treatment for your infection. You have been given a figure 8 sling which you should keep your arm in until you follow up with orthopedic surgery. Please call the Orthopedic office in [place] to set up an appointment in the next week. You will need a walker at home and we will be send home health PT to your home to help improve your strengthening. No Smoking: If you smoke, Please STOP! Call for help. Follow-up with: NJ CHAPA MD [Primary Care Provider] - Hossein Malagon MD [Provider Admit Priv/Credential] -
--- NOTE | 2017-03-26 10:36 | DISCHARGE SUMMARY ---
Discharge Summary Admit Date: 03/24/17 Discharge Date: 03/26/17 Discharging Provider: Levi Drummond MD Primary Care Provider: Khushboo Hwang MD Code Status: Attempt Resuscitation Condition at Discharge: Fair Discharge Disposition: Home Health Service - DIAGNOSES Admission Diagnoses: 1. Syncope and collapse 2. Hypertensive urgency 3. Diabetes, uncontrolled 4. Suspect cerebrovascular accident 5. Urinary tract infection 6. Right Clavicle fracture 7. Chronic obstructive pulmonary disease, without exacerbation. Discharge Diagnoses with Status of Each Condition: 1. Urinary tract infection - improving 2. Right clavicle fracture - stable 3. Syncope likely vasovagal - stable 4. Hypertension - stable 5. Diabetes - stable 6. 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 Abnormally functioning bioprosthetic aortic valve. - HPI History of Present Illness: The patient is a 66-year-old female with a past medical history significant for CVA, Aortic valve replacement, anxiety, diabetes and chronic hearing loss who presented to the emergency department with a chief complaint of fall. She stated that she had been having trouble with dizziness for a couple of months maybe longer. She stated that she was unsteady when she walks and some days it gets really bad. She stated that to the day prior to admission she had a lot of dizziness and describes having the shakes. She states that she went to bed early around 5:00 while her was watching football. The patient's stated that he heard a loud thud and proceeded to find his on the floor. She did not really know what it happened and was not sure if she had lost consciousness but could not remember falling to the floor. The patient was put back in bed and did not seem to be having any problem. She then woke up the next morning and could not get out of bed. The patient was brought to the emergency department and found to have a fractured right clavicle and a urinary tract infection. The patient was admitted for treatment of her UTI and further evaluation of syncope and ataxia. - HOSPITAL COURSE Hospital Course: The patient was admitted to the hospitalist service and treated for urinary tract infection with ceftriaxone IV. She underwent workup for syncope with telemetry monitoring, echocardiogram, MRI, carotid Doppler and CT head and cervical spine. The patient's workup was negative for acute CVA, carotid stenosis and valvular disease. The patient's MRI did reveal encephalomalacia in the occipital poles bilaterally, left greater than right, most consistent with remote infarct in the ART SUPERVISOR territory. The patient was found to have an abnormally functioning porcine bioprosthetic aortic valve with a peak/mean pressure gradient of 47/23 mmHg and an aortic valve area by continuity equation of 0.66 cm. I spoke with Dr. Sims of [facility] who had access to the patient's most recent echocardiogram from July and said that her mean peak pressure was 22 at that time not very different from this most recent echo. She said that the patient did not have an established talent partner and had been seeing her cardiothoracic surgeon in follow-up. She asked that the patient follow-up with [facility] but did not believe that this was the cause of her syncopal episode. This was the likely explanation for the patient's ataxia which had been ongoing for months. If symptoms worsen the patient may need a CTA of the head and neck for further vascular evaluation as an outpatient. It was presumed that the patient likely had syncope secondary to dehydration due to her urinary tract infection. The patient did continue to have a unsteady gait and was evaluated by physical therapy. Physical therapy initially recommended that the patient go to rehab however the patient wanted to return home with her . The patient was eventually discharged home with home health PT. The patient completed 3 days of ceftriaxone in the hospital and was discharged home on Bactrim as her urine culture grew E. coli that was susceptible to Bactrim. For the patient's right clavicle fracture she was placed in a figure 8 sling and given education by physical therapy. We did speak with orthopedic surgery and they asked that the patient follow-up in orthopedic clinic as an outpatient there was no need for any surgical intervention. The patient's pain was adequately controlled and she was instructed to take Tylenol and NSAIDs at home if needed for pain. The patient was discharged in stable condition and will follow up with her primary care physician and orthopedic surgery as an outpatient. - ALLERGIES Allergies/Adverse Reactions: Allergies Allergy/AdvReac Type Severity Reaction Status Date / Time codeine AdvReac Nausea Verified 03/24/17 06:53 - MEDICATIONS Home Medications: Ambulatory Orders Medication Instructions Recorded Confirmed Trazodone HCl 50 mg PO HS PRN 10/25/13 03/24/17 Albuterol Sulfate [Proair Hfa 1 - 2 puffs INH BID PRN 03/24/17 03/24/17 Inhaler] Aspirin Chewable [[place] 81 mg PO DAILY 03/24/17 03/24/17 Aspirin] Atorvastatin Calcium 40 mg PO DAILY 03/24/17 03/24/17 Citalopram Hydrobromide 15 mg PO DAILY 03/24/17 03/24/17 [Citalopram HBr] Iron,Carbonyl [Iron Chews] 03/24/17 metFORMIN [Glucophage] 500 mg PO BID 03/24/17 03/24/17 Sulfamethox/Trimeth 800/160 1 each PO BID #10 tablet 03/26/17 [Bactrim Ds 800/160] - PHYSICAL EXAM AT DISCHARGE General Appearance: positive: No acute distress, Alert Eyes Bilateral: positive: Normal inspection, PERRL, EOMI, No lid inflammation, Conjunctivae nml, No scleral icterus ENT: positive: ENT inspection nml, Pharynx nml, No signs of dehydration. negative: Purulent nasal drainage, Pharyngeal erythema, Oral lesions Neck: positive: Nml inspection, Thyroid nml, No JVD, Trachea midline. negative : Thyromegaly, Lymphadenopathy (R), Lymphadenopathy (L) Respiratory: positive: Chest non-tender, No respiratory distress, Breath sounds nml. negative: Wheezes, Rales, Rhonchi Cardiovascular: positive: Regular rate & rhythm, No murmur, No gallop Peripheral Pulses: positive: 2+ Abdomen: positive: Non-tender, No organomegaly, Nml bowel sounds, No distention Back: positive: Nml inspection. negative: CVA tenderness (R), CVA tenderness (L ) Skin: positive: Color nml, No rash, Warm Extremities: positive: No pedal edema, Other (Right arm in sling with decreased range of motion due to pain) Neurologic/Psychiatric: positive: Oriented x3, CN's nml (2-12), Motor nml, Sensation nml, Mood/affect nml, Other (Ataxia) - LABS Result Diagrams: 03/26/17 05:41 03/26/17 05:41 Other Lab Results: Laboratory Results WBC 3.8 x10^3/uL (4.8-10.8) L 03/26/17 05:41 RBC 3.02 10^6/uL (4.20-5.40) L 03/26/17 05:41 Hgb 9.7 g/dL (12.0-16.0) L 03/26/17 05:41 Hct 29.7 % (37.0-47.0) L 03/26/17 05:41 MCV 98.4 fL (81.0-99.0) 03/26/17 05:41 MCH 32.2 pg (27.0-31.0) H 03/26/17 05:41 MCHC 32.7 g/dL (32.0-36.0) 03/26/17 05:41 RDW 14.2 % (12.0-15.0) 03/26/17 05:41 Plt Count 111 10^3/uL (130-450) L 03/26/17 05:41 MPV 8.1 fL (7.9-10.8) 03/26/17 05:41 Neut # 1.8 10^3/uL (1.5-6.6) 03/26/17 05:41 Lymph # 1.4 10^3/uL (1.5-3.5) L 03/26/17 05:41 [place] # 0.5 10^3/uL (0.0-1.0) 03/26/17 05:41 Eos # 0.1 10^3/uL (0.0-0.7) 03/26/17 05:41 Baso # 0.0 10^3/uL (0.0-0.1) 03/26/17 05:41 Absolute Nucleated RBC 0.00 x10^3/uL 03/26/17 05:41 Nucleated RBCs 0.1 /100WBC 03/26/17 05:41 Sodium 140 mmol/L (135-145) 03/26/17 05:41 Potassium 4.1 mmol/L (3.5-5.0) 03/26/17 05:41 Chloride 112 mmol/L (101-111) H 03/26/17 05:41 Carbon Dioxide 27 mmol/L (21-32) 03/26/17 05:41 Anion Gap 1.0 (6-13) L 03/26/17 05:41 BUN 9 mg/dL (6-20) 03/26/17 05:41 Creatinine 1.1 mg/dL (0.4-1.0) H 03/26/17 05:41 Estimated GFR (MDRD) 50 (>89) L 03/26/17 05:41 Glucose 107 mg/dL (70-100) H 03/26/17 05:41 POC Whole Bld Glucose 96 mg/dL (70 - 100) 03/26/17 07:48 Glycated Hemoglobin 4.7 % (4.6-6.2) 03/24/17 07:35 Estim Average Glucose 88 (70-100) 03/24/17 07:35 Calcium 8.0 mg/dL (8.5-10.3) L 03/26/17 05:41 Total Bilirubin 0.5 mg/dL (0.2-1.0) 03/26/17 05:41 AST 27 IU/L (10-42) 03/26/17 05:41 ALT 20 IU/L (10-60) 03/26/17 05:41 Alkaline Phosphatase 78 IU/L (42-121) 03/26/17 05:41 Troponin I 0.11 ng/mL (<0.49) 03/24/17 08:15 B-Natriuretic Peptide 323 pg/mL (5-100) H 03/24/17 08:15 Total Protein 4.5 g/dL (6.7-8.2) L 03/26/17 05:41 Albumin 2.3 g/dL (3.2-5.5) L 03/26/17 05:41 Globulin 2.2 g/dL (2.1-4.2) 03/26/17 05:41 Albumin/Globulin Ratio 1.0 (1.0-2.2) 03/26/17 05:41 Lipase 21 U/L (22-51) L 03/24/17 08:15 Urine Color YELLOW 03/24/17 10:40 Urine Clarity CLEAR (CLEAR) 03/24/17 10:40 Urine pH 6.0 PH (5.0-7.5) 03/24/17 10:40 Ur Specific [place] <=1.005 (1.002-1.030) 03/24/17 10:40 Urine Protein NEGATIVE mg/dL (NEGATIVE) 03/24/17 10:40 Urine Glucose (UA) NEGATIVE mg/dL (NEGATIVE) 03/24/17 10:40 Urine Ketones NEGATIVE mg/dL (NEGATIVE) 03/24/17 10:40 Urine Occult Blood NEGATIVE (NEGATIVE) 03/24/17 10:40 Urine Nitrite NEGATIVE (NEGATIVE) 03/24/17 10:40 Urine Bilirubin NEGATIVE (NEGATIVE) 03/24/17 10:40 Urine Urobilinogen 0.2 (NORMAL) E.U./dL (NORMAL) 03/24/17 10:40 Ur Leukocyte Esterase SMALL (NEGATIVE) H 03/24/17 10:40 Urine RBC 0-5 /HPF (0-5) 03/24/17 10:40 Urine WBC >25 /HPF (0-5) H 03/24/17 10:40 Urine WBC Clumps PRESENT 03/24/17 10:40 Ur Squamous Epith Cells FEW Squamous (<= Few) 03/24/17 10:40 Urine Bacteria Many /HPF (None Seen) H 03/24/17 10:40 Ur Microscopic Review INDICATED 03/24/17 10:40 Urine Culture Comments INDICATED 03/24/17 10:40 - DIAGNOSTIC IMAGING Diagnostic Imaging Results: Final report reviewed Diagnostic Imaging Results Comments: CT cervical spine: No acute process or recent posttraumatic abnormality. Old unfused posterior spinous process fracture of T1 and T2. Severe degenerative disc disease at C5-C6 and C7-C6, somewhat worse over the past year. 3 mm degenerative retrolisthesis of C5 on C6, chronic and stable. CT chest: Findings consistent with mildly comminuted fracture, slightly displaced, at the junction of the middle and distal third of the right clavicle. Standard two-view radiography study of the right clavicle recommended for further assessment. No pneumothorax or other posttraumatic abnormality of the chest. Interval aortic valve replacement since prior chest radiography. CT head impression: Stable CT head. Mild to moderate atrophy and chronic white matter microvascular ischemic change. No acute intracranial process or posttraumatic abnormality. Carotid Doppler: Mild bilateral internal carotid artery calcified plaque with no hemodynamically significant stenosis. MRI brain: 1. No acute intracranial abnormalities. Specifically, no evidence of acute infarct, hemorrhage or mass lesion. 2. Encephalomalacia in the occipital poles bilaterally, left side greater than right, most consistent with remote infarcts in the ART SUPERVISOR territories. Involvement of ART SUPERVISOR territories bilaterally raises the possibility of vertebrobasilar insufficiency. Consider CTA of the head and neck for vascular evaluation. 3. Moderate to severe white matter changes within the deep cerebral white matter and extending to the subcortical white matter bilaterally. Appearance is nonspecific, but most commonly due to sequela of chronic small vessel ischemic disease. Echocardiogram preliminary results: Normal ejection fraction with EF of 60-65%. No regional wall motion abnormality seen. Left atrium is severe increase in the left atrial volume index. Aortic valve with mild aortic regurgitation. Abnormally functioning porcine bioprosthetic aortic valve with peak/mean pressure gradient of 47/23 mmHg with an aortic valve area by continuity equation of 0.66 cm. Mild to moderate mitral regurgitation. Moderately abnormal right heart pressures. Right ventricular systolic function at rest of 62 mmHg. - FOLLOW UP Follow Up: The patient will need to follow-up with her primary care physician in the next 1 -2 weeks. Patient will also need to follow-up with orthopedic surgery as soon as she can get an appointment to evaluate her right clavicle fracture. The patient was discharged home with home PT. If the patient's ataxia continues to worsen she may need further evaluation with a CT angiogram of her head and neck as her MRI did reveal remote infarcts in the ART SU[employer]OR territories that are the likely explanation for her current ataxia.The patient needs a follow-up appointment with cardiology I would ask that the patient's PCP give the patient a referral for cardiology given that there was abnormal findings on her echocardiogram. - TIME SPENT Time Spent in Discharge (Minutes): 45
== END 2017-03-26 12:49 | disposition home health service (06) | DRG 690 ==
LOC: EDUNIT# → ED 06:40 → MS2 13:05
PROVIDERS: ADMIT Internal Medicine; ATTEND Internal Medicine
DX: S42.021A Displaced fracture of shaft of right clavicle, initial encounter for closed fracture (principal); R27.0 Ataxia, unspecified; R94.31 Abnormal electrocardiogram [ECG] [EKG]; N39.0 Urinary tract infection, site not specified; S00.12XA Contusion of left eyelid and periocular area, initial encounter; S50.12XA Contusion of left forearm, initial encounter; W19.XXXA Unspecified fall, initial encounter; Y92.009 Unspecified place in unspecified non-institutional (private) residence as the place of occurrence of the external cause; F32.9 Major depressive disorder, single episode, unspecified; R73.03 Prediabetes; N30.00 Acute cystitis without hematuria; T82.09XA Other mechanical complication of heart valve prosthesis, initial encounter; Z95.2 Presence of prosthetic heart valve; I47.2 Ventricular tachycardia; Z86.73 Personal history of transient ischemic attack (TIA), and cerebral infarction without residual deficits; R55 Syncope and collapse; I49.8 Other specified cardiac arrhythmias; S42.031A Displaced fracture of lateral end of right clavicle, initial encounter for closed fracture; W06.XXXA Fall from bed, initial encounter; Y92.003 Bedroom of unspecified non-institutional (private) residence as the place of occurrence of the external cause; Y83.1 Surgical operation with implant of artificial internal device as the cause of abnormal reaction of the patient, or of later complication, without mention of misadventure at the time of the procedure; I16.0 Hypertensive urgency; I10 Essential (primary) hypertension; E86.0 Dehydration; B96.20 Unspecified Escherichia coli [E. coli] as the cause of diseases classified elsewhere; I69.393 Ataxia following cerebral infarction; I69.398 Other sequelae of cerebral infarction; G93.89 Other specified disorders of brain; E11.65 Type 2 diabetes mellitus with hyperglycemia; J44.9 Chronic obstructive pulmonary disease, unspecified; F41.9 Anxiety disorder, unspecified; Z91.81 History of falling; Z79.82 Long term (current) use of aspirin; Z79.84 Long term (current) use of oral hypoglycemic drugs; Z87.891 Personal history of nicotine dependence
CPT/HCPCS: 36415; 70450; 70553; 71250; 72125; 80053; 81001; 81003; 83036; 83690; 83880; 84484; 85025; 87086; 93005; 93306; 93880; 96361; 96365; 96375; 99285

== ENCOUNTER 2017-04-07 10:26 | Emergency (ER) | payer MEDICARE, OTHER ==
--- NOTE | 2017-04-07 12:18 | ED Physician Documentation ---
PD HPI UPPER EXT INJURY - Stated complaint Stated Complaint: R SHOULDER INJ - Chief complaint Chief Complaint: Ext Problem - History obtained from History obtained from: Patient - History of Present Illness Location: Right, Clavicle Type of injury: Fall (she had fallen and fractured right clavicle 2 weeks ago, was in hospital for couple of days. She has had increasing swelling right mid clavicle area, worse the past few days, causing pressure and pain in the area. Seen by PCP today and referred to ED for evaluation.) Where injury occurred: Home Timing - duration: Days (she had broken her clavicle about 6 days ago and has had increased swelling locally, with pain to it. Called to see Ortho and referred to ER.) Timing - details: Gradual onset Worsened by: Moving, Palpating Contributing factors: No: Anticoagulated Similar symptoms before: Has not had sx before Recently seen: Emergency Dept, Admitted Review of Systems Constitutional: denies: Fever, Chills Neurologic: denies: Focal weakness, Numbness PD PAST MEDICAL HISTORY - Past Medical History Cardiovascular: Murmur Neuro: CVA Endocrine/Autoimmune: Type 2 diabetes GI: None : Incontinence, Nocturia, Frequency HEENT: Chronic hearing loss Psych: Panic attacks, Other Musculoskeletal: None Derm: Other - Past Surgical History General: Cholecystectomy, Appendectomy, Gastric surgery Ortho: Other Cardiovascular: Valve replacement - Present Medications Home Medications: Ambulatory Orders Medication Instructions Recorded Confirmed Trazodone HCl 50 mg PO HS PRN 10/25/13 04/07/17 Albuterol Sulfate [Proair Hfa 1 - 2 puffs INH BID PRN 03/24/17 03/24/17 Inhaler] Iron,Carbonyl [Iron Chews] 1 tab PO DAILY 03/24/17 04/07/17 metFORMIN [Glucophage] 500 mg PO BID 03/24/17 04/07/17 Oxycodone HCl/Acetaminophen 1 each PO Q6H PRN #20 tablet 04/07/17 [Percocet 5-325 mg Tablet] - Allergies Allergies/Adverse Reactions: Allergies Allergy/AdvReac Type Severity Reaction Status Date / Time codeine AdvReac Nausea Verified 03/24/17 06:53 - Social History Does the pt smoke?: No Smoking Status: Former smoker Does the pt drink ETOH?: No Does the pt have substance abuse?: No - Immunizations Immunizations: TDAP current <10years PD ED PE NORMAL - Vitals Vital signs reviewed: Yes - General General: Alert and oriented X 3, No acute distress, Well developed/nourished - Cardiac Cardiac: RRR, Other (1/6 murmur anterior chest. ) - Respiratory Respiratory: No respiratory distress, Clear bilaterally - Derm Derm: Warm and dry - Extremities Extremities: Other (right mid clavicle with tense focal swelling about tennis ball size, that is tender, no redness, but some bruising color. C/W hematoma. Right hand and wrist with good color and pulses. ) - Neuro Neuro: Alert and oriented X 3, No motor deficit, No sensory deficit, Normal speech Results - Vitals Vitals: Oxygen O2 Source [Without Activity] Room air O2 Source Room air - Labs Labs: Laboratory Tests 04/07/17 04/07/17 12:52 12:52 WBC 6.2 RBC 3.30 L Hgb 10.9 L Hct 33.0 L MCV 99.9 H MCH 32.9 H MCHC 32.9 RDW 15.7 H Plt Count 224 MPV 7.7 L Neut # 4.2 Lymph # 1.4 L Price # 0.5 Eos # 0.1 Baso # 0.1 Absolute Nucleated RBC 0.00 Nucleated RBCs 0.0 Sodium 134 L Potassium 5.4 H Chloride 102 Carbon Dioxide 26 Anion Gap 6.0 BUN 17 Creatinine 1.1 H Estimated GFR (MDRD) 50 L Glucose 106 H Calcium 9.1 Total Bilirubin 1.2 H AST 51 H ALT 26 Alkaline Phosphatase 100 Total Protein 5.9 L Albumin 3.4 Globulin 2.5 Albumin/Globulin Ratio 1.4 Lipase 22 - Rads (name of study) CT chest Radiology: Prelim report reviewed PD MEDICAL DECISION MAKING - ED course Complexity details: reviewed results, considered differential (prior recent clavicle fracture with large hematoma. Concern for injury to subclavian vessels , so got CT with contrast (after discussion with Radiologist). Flow in subclavian was okay. No signs of pseudoaneurysm or such. ), d/w patient, d/w dairy feed sales consultant (Dr. Malagon was in ED and looked at the hematoma. He would not aspirate nor decompress the hematoma at this time. Will see in office. ) Departure - Departure Disposition: 01 Home, Self Care Clinical Impression: Right clavicle fracture Qualifiers: Encounter type: subsequent encounter Clavicle location: shaft Fracture type: closed Fracture alignment: displaced Fracture healing: with routine healing Qualified Code(s): S42.021D - Displaced fracture of shaft of right clavicle, subsequent encounter for fracture with routine healing Hematoma, chest wall Qualifiers: Encounter type: initial encounter Laterality: right Qualified Code(s): S20.211A - Contusion of right front wall of thorax, initial encounter Condition: Stable Record reviewed to determine appropriate education?: Yes Instructions: ED Hematoma Follow-Up: [place] CHAPA MD [Primary Care Provider] - Hossein Malagon MD [Provider Admit Priv/Credential] - Prescriptions: Oxycodone HCl/Acetaminophen [Percocet 5-325 mg Tablet] 1 each PO Q6H PRN #20 tablet PRN Reason: Pain Comments: Continue with the sling to support the collarbone fracture. Warm towels to the hematoma area a few times a day to help it absorb faster. Recommendation from the orthopedics is to not try to drain at this time. Call the orthopedic office for an appointment later this week for recheck. Use Percocet if needed for pain. Discharge Date/Time: 04/07/17 16:00
[2017-04-07] MEDS ORDERED: HYDROcod/ACETAM 5/325 MG TABLET PO STA ×2 (12:36→13:56)
[2017-04-07] MEDS ORDERED: HYDROcod/ACETAM 5/325 MG TABLET ONE ×2 (12:43→14:08)
[2017-04-07 13:05] LABS: BASOPHILS # (AUTO) 0.1 10^3/uL (0.0-0.1); BASOPHILS % (AUTO) 1.3 %; EOSINOPHILS # (AUTO) 0.1 10^3/uL (0.0-0.7); EOSINOPHILS % (AUTO) 1.4 %; HGB - HEMOGLOBIN 10.9 g/dL (12.0-16.0); LYMPHOCYTES # (AUTO) 1.4 10^3/uL (1.5-3.5); LYMPHOCYTES % (AUTO) 21.9 %; MEAN CORPUSCULAR HEMOGLOBIN 32.9 pg (27.0-31.0); MEAN CORPUSCULAR HGB CONC 32.9 g/dL (32.0-36.0); MEAN CORPUSCULAR VOLUME 99.9 fL (81.0-99.0); MEAN PLATELET VOLUME 7.7 fL (7.9-10.8); MONOCYTES # (AUTO) 0.5 10^3/uL (0.0-1.0); MONOCYTES % (AUTO) 8.6 %; NEUTROPHILS # (AUTO) 4.2 10^3/uL (1.5-6.6); NEUTROPHILS % (AUTO) 66.8 %; RED CELL DISTRIBUTION WIDTH 15.7 % (12.0-15.0); UNCORRECTED WHITE BLOOD COUNT 6.2 x10^3/uL; WHITE BLOOD COUNT 6.2 x10^3/uL (4.8-10.8)
[2017-04-07 13:18] LABS: ALBUMIN/GLOBULIN RATIO 1.4 (1.0-2.2); BILIRUBIN,TOTAL 1.2 mg/dL (0.2-1.0); CALCIUM 9.1 mg/dL (8.5-10.3); CREATININE 1.1 mg/dL (0.4-1.0); POTASSIUM 5.4 mmol/L (3.5-5.0); TOTAL PROTEIN 5.9 g/dL (6.7-8.2)
[2017-04-07] MEDS ORDERED: IOPAMIDOL-300 100 ML VIAL ONE (13:35)
[2017-04-07] MEDS ORDERED: IOPAMIDOL-300 100 ML VIAL IVP ONE (13:45)
--- NOTE | 2017-04-07 14:33 | CT Preliminary Report ---
Exam: CT Chest W/ IMPRESSION: 1. Slight increased amount healing of the nondisplaced mid to distal right clavicular fracture. There is a new, approximate 7.5 x 6.4 x 6.3 cm right subclavian area hematoma mostly anterior inferior to the right clavicular fracture. No definite evidence of active bleeding into the hematoma. 2. Mild scar and/or subsegmental atelectasis at the lower lobes of the lungs. No pneumothorax or pleu ral effusion. 3. Atrophic right kidney. Small 1.4 cm cyst within the right kidney. [facility] SITE ID: [id number]
--- NOTE | 2017-04-07 14:36 | CT Report ---
EXAM: CT CHEST EXAM DATE: 04/07/2017 01:56 PM. CLINICAL HISTORY: Right subclavian hematoma. Previous right clavicular fracture. COMPARISONS: Chest CT from 03/24/2017. TECHNIQUE: Routine helical CT imaging was performed through the chest. IV contrast: 80 cc Isovue 300. Reconstructions: Coronal and sagittal. In accordance with CT protocol optimization, one or more of the following dose reduction techniques w ere utilized for this exam: automated exposure control, adjustment of mA and/or KV based on patient s ize, or use of iterative reconstructive technique. FINDINGS: Lungs/Pleura: Mild scar and/or subsegmental atelectasis at the lower lobes. No pneumothorax. No pleur al effusion. Mediastinum: Normal. No adenopathy or masses. The heart and great vessels are normal. Bones: As seen on the previous study, there is a displaced extra articular fracture at the mid to dis patricia aspect of the right clavicle. There is a small amount of callus formation around the fracture sit e. There is a new, approximately 7.5 x 6.4 x 6.3 cm right subclavian area hematoma mostly anterior in ferior to the right clavicular fracture. No definite evidence of active bleeding into the hematoma. Visualized Abdomen: Incidentally, the left hepatic lobe is elongated and is anterior and anterolatera l to the spleen at the left upper abdominal quadrant. The right kidney is atrophic. There is a cyst a t the right kidney. Other: None. IMPRESSION: 1. Slight increased amount healing of the nondisplaced mid to distal right clavicular fracture. There is a new, approximate 7.5 x 6.4 x 6.3 cm right subclavian area hematoma mostly anterior inferior to the right clavicular fracture. No definite evidence of active bleeding into the hematoma. 2. Mild scar and/or subsegmental atelectasis at the lower lobes of the lungs. No pneumothorax or pleu ral effusion. 3. Atrophic right kidney. Small 1.4 cm cyst within the right kidney. [facility] Referring Provider Line: [phone] SITE ID: [id number]
[2017-04-07] MEDS ORDERED: oxyCOD/ACETAMIN 5 MG/325 MG TABLET PO STA (15:51)
[2017-04-07 15:59] VITALS: BP 158/107
[2017-04-07] MEDS ORDERED: oxyCOD/ACETAMIN 5 MG/325 MG TABLET PO ONE (16:01)
== END 2017-04-07 16:00 | disposition home or self-care (01) ==
LOC: ED 10:26
DX: S42.021D Displaced fracture of shaft of right clavicle, subsequent encounter for fracture with routine healing (principal); S20.211A Contusion of right front wall of thorax, initial encounter; W19.XXXD Unspecified fall, subsequent encounter; E11.9 Type 2 diabetes mellitus without complications; Z79.84 Long term (current) use of oral hypoglycemic drugs; Z86.73 Personal history of transient ischemic attack (TIA), and cerebral infarction without residual deficits; Z95.2 Presence of prosthetic heart valve; Z87.891 Personal history of nicotine dependence
CPT/HCPCS: 36415; 71260; 80053; 83690; 85025; 99283; 99284; A9270; Q9967

== ENCOUNTER 2017-07-13 10:29 | Outpatient (CLI) | payer MEDICARE, OTHER | END 2017-07-13 10:30 | disposition EMS.NT | LOC: LAB.F 10:29 | PROVIDERS: ATTEND Internal Medicine | DX: Z03.89 Encounter for observation for other suspected diseases and conditions ruled out (principal); W18.30XA Fall on same level, unspecified, initial encounter; Y92.009 Unspecified place in unspecified non-institutional (private) residence as the place of occurrence of the external cause | CPT/HCPCS: 80053; 82607; 83036; 83540; 84466; 85025; 85610 ==

== ENCOUNTER 2017-08-13 16:30 | Emergency (ER) | payer MEDICARE, OTHER ==
[2017-08-13 16:43] VITALS: BP 105/70
--- NOTE | 2017-08-13 16:48 | ED Physician Documentation ---
PD HPI LOWER EXT INJURY - Stated complaint Stated Complaint: SKIN TEAR LT CALF/LEG - Chief complaint Chief Complaint: Laceration - History obtained from History obtained from: Patient, Caregiver - History of Present Illness PD HPI LOW EXT INJURY LOCATION: Left Type of injury: Twist. No: Fall, Blunt / blow Timing - duration: Hours Timing - details: Abrupt onset, Still present Contributing factors: Anticoagulated. No: Prior ortho surgery Similar symptoms before: Has not had sx before Recently seen: Not recently seen Review of Systems Constitutional: denies: Fever, Chills Nose: denies: Rhinorrhea / runny nose, Congestion Throat: denies: Sore throat Respiratory: denies: Cough PD PAST MEDICAL HISTORY - Past Medical History Cardiovascular: Murmur Respiratory: None Neuro: CVA Endocrine/Autoimmune: Type 2 diabetes GI: None : Incontinence, Nocturia, Frequency HEENT: Chronic hearing loss Psych: Panic attacks, Other Musculoskeletal: None Derm: Other - Past Surgical History General: Cholecystectomy, Appendectomy, Gastric surgery Ortho: Other Cardiovascular: Valve replacement - Present Medications Home Medications: Ambulatory Orders Medication Instructions Recorded Confirmed Trazodone HCl 50 mg PO HS PRN 10/25/13 08/13/17 Albuterol Sulfate [Proair Hfa 1 - 2 puffs INH BID PRN 03/24/17 08/13/17 Inhaler] Atorvastatin Calcium [Atorvastatin 40 mg ORAL DAILY 08/13/17 08/13/17 Calcium] Citalopram Hydrobromide 20 mg ORAL DAILY 08/13/17 08/13/17 [Citalopram HBr] - Allergies Allergies/Adverse Reactions: Allergies Allergy/AdvReac Type Severity Reaction Status Date / Time codeine AdvReac Nausea Verified 08/13/17 16:43 - Social History Does the pt smoke?: No Smoking Status: Former smoker Does the pt drink ETOH?: No Does the pt have substance abuse?: No - Immunizations Immunizations: TDAP current <10years PD ED PE NORMAL - Vitals Vital signs reviewed: Yes - General General: Alert and oriented X 3, Well developed/nourished, Other (sitting stiffly in the chair. ) - HEENT HEENT: Moist mucous membranes, Pharynx benign - Neck Neck: Supple, no meningeal sign, No adenopathy - Cardiac Cardiac: RRR, No murmur - Respiratory Respiratory: Clear bilaterally Results - Vitals Vitals: Vital Signs - 24 hr 08/13/17 16:38 Temperature 36.1 C L Heart Rate 82 Respiratory 16 Rate Blood Pressure 105/70 O2 Saturation 99 Oxygen O2 Source [Without Activity] Room air O2 Source Room air Departure - Departure Disposition: Home, Self Care Clinical Impression: Skin tear Condition: Stable Record reviewed to determine appropriate education?: Yes Instructions: ED Laceration Ext Sutr Stap Tape Follow-Up: [place] CHAPA MD [Primary Care Provider] - Comments: Also to watch for signs of infection such as purulence, redness or increasing pain. Return to your primary care or the ER at the specified time for suture removal. Suture removal in 12-14 days. Follow-up with your primary care in the next 4-5 days, call tomorrow for an appointment. Keep the area clean and dry. Discharge Date/Time: 08/13/17 18:37
[2017-08-13] MEDS ORDERED: ACETAMINOPHEN 325 MG TABLET PO STA (17:12)
== END 2017-08-13 18:37 | disposition home or self-care (01) ==
LOC: ED 16:30
DX: S81.812A Laceration without foreign body, left lower leg, initial encounter (principal); X58.XXXA Exposure to other specified factors, initial encounter; E11.9 Type 2 diabetes mellitus without complications; Z86.73 Personal history of transient ischemic attack (TIA), and cerebral infarction without residual deficits; Z95.2 Presence of prosthetic heart valve; Z87.891 Personal history of nicotine dependence
CPT/HCPCS: 99281; 99283; A9270

== ENCOUNTER 2017-08-14 11:52 | Outpatient (CLI) | payer MEDICARE, OTHER | END 2017-08-14 11:53 | disposition EMS.NT | LOC: EMS 11:52 | PROVIDERS: ATTEND Surgery | DX: Z03.89 Encounter for observation for other suspected diseases and conditions ruled out (principal); W01.0XXA Fall on same level from slipping, tripping and stumbling without subsequent striking against object, initial encounter; Y92.008 Other place in unspecified non-institutional (private) residence as the place of occurrence of the external cause ==